=== PATIENT | male | born 1995 | race African-American/Black ===

== ENCOUNTER 2021-01-27 17:06 | Emergency (ER) | payer BC | END 2021-01-27 18:25 | disposition home or self-care (01) | LOC: ERS 17:06 | DX: U07.1 COVID-19 (principal); B20 Human immunodeficiency virus [HIV] disease; F17.210 Nicotine dependence, cigarettes, uncomplicated | CPT/HCPCS: 99284 ==

== ENCOUNTER 2021-01-31 18:43 | Emergency (ER) | payer BC, SELFPAY ==
[2021-01-31] MEDS ORDERED: Ondansetron PF 4 MG/2 ML Vial ONE (19:41)
[2021-01-31] MEDS ORDERED: Ketorolac Tromethamine 30 MG/ML VIAL ONE (19:41)
[2021-01-31] MEDS ORDERED: Ibuprofen 200 MG TAB ONE (20:56)
== END 2021-01-31 21:15 | disposition home or self-care (01) ==
LOC: ERS 18:43
DX: U07.1 COVID-19 (principal); B20 Human immunodeficiency virus [HIV] disease
CPT/HCPCS: 96374; 96375; J1885; J2405